=== PATIENT | female | born 1990 | race Caucasian/White ===

== ENCOUNTER 2019-06-21 19:44 | Emergency (ER) | payer SELFPAY ==
[2019-06-21] MEDS ORDERED: Ondansetron 4 MG/2 ML SDV IVPUSH ONE (19:58)
[2019-06-21] MEDS ORDERED: Sodium Chloride 0.9% 1,000 ML IV ONE ×2 (19:58→21:19)
--- NOTE | 2019-06-21 20:01 | EDM.PDOC ---
ED HPI GENERAL MEDICAL PROBLEM - General Chief Complaint: ANIMAL CONTROL SPECIALIST Problem Stated Complaint: NAUSEA Time Seen by Provider: 06/21/19 19:56 Source of Information: Reports: Patient History Limitations: Reports: No Limitations - History of Present Illness INITIAL COMMENTS - FREE TEXT/NARRATIVE: HISTORY AND PHYSICAL: History of present illness: Patient is a 28-year-old female who presents to the emergency room with complaints of nausea, vomiting and generalized weakness. Patient states she is 10 weeks' gestation and does follow with Kimberlyn Kenyon in our clinic for her ANIMAL CONTROL SPECIALIST needs. She has a confirmed IUP and a prescription for Zofran. She states she has not been taking the Zofran as she "doesn't like the way it makes me feel ". She states over the past 2 days she has had nausea and vomiting and is concerned she may be dehydrated. Patient denies any fever, chills, headache, change in vision, syncope or near syncope. Denies any chest pain, back pain, shortness of breath or cough. Denies any abdominal pain, diarrhea, constipation or dysuria. Has not noted any blood in urine or stool. Denies any vaginal bleeding or cramping. Patient has been eating and drinking appropriately. Review of systems: As per history of present illness and below otherwise all systems reviewed and negative. Past medical history: As per history of present illness and as reviewed below otherwise noncontributory. Surgical history: As per history of present illness and as reviewed below otherwise noncontributory. Social history: See social history for further information Family history: As per history of present illness and as reviewed below otherwise noncontributory. Physical exam: General: Well-developed and well-nourished 28-year-old -[place] female. Alert and oriented. Nontoxic appearing and in no acute distress. HEENT: Atraumatic, normocephalic, pupils equal and reactive bilaterally, negative for conjunctival pallor or scleral icterus, mucous membranes moist, TMs normal bilaterally, throat clear, neck supple, nontender, trachea midline. No drooling or trismus noted. No meningeal signs. No hot potato voice noted. Lungs: Clear to auscultation, breath sounds equal bilaterally, chest nontender. Heart: S1S2, regular rate and rhythm without overt murmur Abdomen: Soft, nondistended, nontender. Negative for masses or hepatosplenomegaly. Negative for costovertebral tenderness. Pelvis: Stable nontender. Skin: Intact, warm, dry. No lesions or rashes noted. Extremities: Atraumatic, moves all extremities per self without difficulty or deficits, negative for cords or calf pain. Neurovascular unremarkable. Neuro: Awake, alert, oriented. Cranial nerves II through XII unremarkable. Cerebellum unremarkable. Motor and sensory unremarkable throughout. Exam nonfocal. Notes: Patient refuses the Zofran. We'll give her Phenergan suppository. EKG shows a sinus rhythm with a rate of 86. She is refusing the influenza swab regardless of education. Patient does have bacteria in urine, we'll treat for UTI. She does not have any flank pain nor abdominal pain, not suspicious for a stone at this time. Patient does feel improvement with the medication. Supportive care measures were reviewed and discussed. Voices understanding and is agreeable to plan of care. Denies any further questions or concerns at this time. Diagnostics: CBC, CMP, UA, Influenza, EKG Therapeutics: IV fluids, Zofran (declined), Phenergan Suppos, Prescription: None Impression: Hyperemesis gravidarum UTI Plan: 1. Please start and/or continue to take your vitamin with folic acid once daily. 2. Take your Zofran or Phenergan Suppository as directed 3. Tylenol as needed for pain management. 4. Follow up with her ANIMAL CONTROL SPECIALIST in the next week. Return to the ED as needed and as discussed. Definitive disposition and diagnosis as appropriate pending reevaluation and review of above. chest Pain Score (Numeric/FACES): 2 - Related Data Allergies Allergy/AdvReac Type Severity Reaction Status Date / Time No Known Allergies Allergy Verified 12/09/15 04:09 Home Meds: Home Meds Ondansetron [Zofran ODT] 4 mg PO ASDIRECTED 06/21/19 [History] Past Medical History - Past Health History Medical/Surgical History: Denies Medical/Surgical History ANIMAL CONTROL SPECIALIST History: Reports: - Infectious Disease History Infectious Disease History: Reports: Chicken Pox Social & Family History - Family History Family Medical History: Noncontributory - Tobacco Use Smoking Status *Q: Never Smoker - Recreational Drug Use Recreational Drug Use: No ED ROS GENERAL - Review of Systems Review Of Systems: Comprehensive ROS is negative, except as noted in HPI. ED EXAM - Physical Exam Exam: See Below (See dictation) Course - Vital Signs Last Recorded V/S: Last Vital Signs Temp 97.3 F 06/21/19 19:50 Pulse 120 H 06/21/19 19:50 Resp 18 06/21/19 19:50 BP 143/90 H 06/21/19 19:50 Pulse Ox 99 06/21/19 19:50 - Orders/Labs/Meds Orders: Active Orders 24 hr Category Date Time Status EKG Documentation Completion [RC] STAT Care 06/21/19 20:01 Active Sodium Chloride 0.9% [Normal Saline] 1,000 ml Med 06/21/19 21:19 Ordered IV .Bolus cefTRIAXone [Rocephin in Dextrose,Iso-Osm 1 GM/50 ML] 1 Med 06/21/19 21:28 Ordered gm Premix Bag 1 bag IV ONETIME Medication Orders Sodium Chloride (Normal Saline) 1,000 mls @ 999 mls/hr IV .Bolus ONE Stop: 06/21/19 22:19 Last Admin: 06/21/19 21:23 Dose: 999 mls/hr Ceftriaxone Sodium/Dextrose 1 (gm/ Premix) 50 mls @ 100 mls/hr IV ONETIME ONE Stop: 06/21/19 21:57 Last Admin: 06/21/19 21:40 Dose: 100 mls/hr Labs: Laboratory Tests 06/21/19 06/21/19 06/21/19 Range/Units 19:50 19:50 19:50 WBC 11.49 H (4.0-11.0) K/uL RBC 4.75 (4.30-5.90) M/uL Hgb 14.2 (12.0-16.0) g/dL Hct 39.6 (36.0-46.0) % MCV 83.4 (80.0-98.0) fL MCH 29.9 (27.0-32.0) pg MCHC 35.9 (31.0-37.0) g/dL RDW Std Deviation 37.9 (28.0-62.0) fl RDW Coeff of Gerri 12 (11.0-15.0) % Plt Count 253 (150-400) K/uL MPV 10.90 (7.40-12.00) fL Neut % (Auto) 62.0 (48.0-80.0) % Lymph % (Auto) 30.6 (16.0-40.0) % [place] % (Auto) 6.7 (0.0-15.0) % Eos % (Auto) 0.4 (0.0-7.0) % Baso % (Auto) 0.3 (0.0-1.5) % Neut # (Auto) 7.1 H (1.4-5.7) K/uL Lymph # (Auto) 3.5 H (0.6-2.4) K/uL [place] # (Auto) 0.8 (0.0-0.8) K/uL Eos # (Auto) 0.1 (0.0-0.7) K/uL Baso # (Auto) 0.0 (0.0-0.1) K/uL Nucleated RBC % 0.0 /100WBC Nucleated RBCs # 0 K/uL Sodium 135 L (136-145) mmol/L Potassium 3.3 L (3.5-5.1) mmol/L Chloride 97 L (98-107) mmol/L Carbon Dioxide 24.1 (21.0-32.0) mmol/L BUN 5 L (7.0-18.0) mg/dL Creatinine 0.9 (0.6-1.0) mg/dL Est Cr Clr Drug Dosing 78.93 mL/min Estimated GFR (MDRD) > 60.0 ml/min Glucose 113 H (74-106) mg/dL Calcium 9.7 (8.5-10.1) mg/dL Total Bilirubin 0.6 (0.2-1.0) mg/dL AST 27 (15-37) IU/L ALT 21 (14-63) IU/L Alkaline Phosphatase 84 (46-116) U/L Total Protein 9.4 H (6.4-8.2) g/dL Albumin 4.7 (3.4-5.0) g/dL Globulin 4.7 H (2.6-4.0) g/dL Albumin/Globulin Ratio 1.0 (0.9-1.6) Urine Color Urine Appearance Urine pH (5.0-8.0) Ur Specific Aurora (1.001-1.035) Urine Protein (NEGATIVE) mg/dL Urine Glucose (UA) (NEGATIVE) mg/dL Urine Ketones (NEGATIVE) mg/dL Urine Occult Blood (NEGATIVE) Urine Nitrite (NEGATIVE) Urine Bilirubin (NEGATIVE) Urine Ictotest Urine Urobilinogen (<2.0) EU/dL Ur Leukocyte Esterase (NEGATIVE) Urine RBC (0-2/HPF) Urine WBC (0-5/HPF) Ur Epithelial Cells (NONE-FEW) Urine Bacteria (NEGATIVE) Urine Mucus (NONE-MOD) Monoscreen NEGATIVE (NEG) 06/21/19 Range/Units 20:50 WBC (4.0-11.0) K/uL RBC (4.30-5.90) M/uL Hgb (12.0-16.0) g/dL Hct (36.0-46.0) % MCV (80.0-98.0) fL MCH (27.0-32.0) pg MCHC (31.0-37.0) g/dL RDW Std Deviation (28.0-62.0) fl RDW Coeff of Gerri (11.0-15.0) % Plt Count (150-400) K/uL MPV (7.40-12.00) fL Neut % (Auto) (48.0-80.0) % Lymph % (Auto) (16.0-40.0) % [place] % (Auto) (0.0-15.0) % Eos % (Auto) (0.0-7.0) % Baso % (Auto) (0.0-1.5) % Neut # (Auto) (1.4-5.7) K/uL Lymph # (Auto) (0.6-2.4) K/uL [place] # (Auto) (0.0-0.8) K/uL Eos # (Auto) (0.0-0.7) K/uL Baso # (Auto) (0.0-0.1) K/uL Nucleated RBC % /100WBC Nucleated RBCs # K/uL Sodium (136-145) mmol/L Potassium (3.5-5.1) mmol/L Chloride (98-107) mmol/L Carbon Dioxide (21.0-32.0) mmol/L BUN (7.0-18.0) mg/dL Creatinine (0.6-1.0) mg/dL Est Cr Clr Drug Dosing mL/min Estimated GFR (MDRD) ml/min Glucose (74-106) mg/dL Calcium (8.5-10.1) mg/dL Total Bilirubin (0.2-1.0) mg/dL AST (15-37) IU/L ALT (14-63) IU/L Alkaline Phosphatase (46-116) U/L Total Protein (6.4-8.2) g/dL Albumin (3.4-5.0) g/dL Globulin (2.6-4.0) g/dL Albumin/Globulin Ratio (0.9-1.6) Urine Color YELLOW Urine Appearance HAZY Urine pH 6.0 (5.0-8.0) Ur Specific Aurora >= 1.030 (1.001-1.035) Urine Protein 30 H (NEGATIVE) mg/dL Urine Glucose (UA) NEGATIVE (NEGATIVE) mg/dL Urine Ketones >=80 (NEGATIVE) mg/dL Urine Occult Blood MODERATE H (NEGATIVE) Urine Nitrite NEGATIVE (NEGATIVE) Urine Bilirubin SMALL H (NEGATIVE) Urine Ictotest POSITIVE Urine Urobilinogen 4.0 H (<2.0) EU/dL Ur Leukocyte Esterase NEGATIVE (NEGATIVE) Urine RBC 15-20 (0-2/HPF) Urine WBC 0-3 (0-5/HPF) Ur Epithelial Cells FEW (NONE-FEW) Urine Bacteria 1+ H (NEGATIVE) Urine Mucus MODERATE (NONE-MOD) Monoscreen (NEG) Meds: Medications Generic Name Dose Route Start Last Admin Trade Name Freq PRN Reason Stop Dose Admin Sodium Chloride 1,000 mls @ 999 mls/hr 06/21/19 21:19 06/21/19 21:23 Normal Saline IV 06/21/19 22:19 999 mls/hr .Bolus ONE Administration Ceftriaxone Sodium/Dextrose 1 50 mls @ 100 mls/hr 06/21/19 21:28 06/21/19 21: 40 gm/ Premix IV 06/21/19 21:57 100 mls/hr ONETIME ONE Administration Discontinued Medications Generic Name Dose Route Start Last Admin Trade Name Freq PRN Reason Stop Dose Admin Sodium Chloride 1,000 mls @ 999 mls/hr 06/21/19 19:58 06/21/19 20:06 Normal Saline IV 06/21/19 20:58 999 mls/hr STAT ONE Administration Ondansetron HCl 4 mg 06/21/19 19:58 11/29/19 20:09 Zofran IVPUSH 06/21/19 19:59 Not Given ONETIME ONE Promethazine HCl 12.5 mg 06/21/19 20:16 06/21/19 20:58 Phenadoz RECTAL 06/21/19 20:17 12.5 mg ONETIME ONE Administration Departure - Departure Time of Disposition: 21:43 Disposition: Home, Self-Care 01 Clinical Impression: Hyperemesis gravidarum Urinary tract infection Qualifiers: Urinary tract infection type: acute cystitis Hematuria presence: with hematuria Qualified Code(s): N30.01 - Acute cystitis with hematuria - Discharge Information Instructions: Urinary Tract Infection, Adult, [id number] Referrals: PCP,Unknown [Primary Care Provider] - Forms: ED Department Discharge Additional Instructions: The following information is given to patients seen in the emergency department who are being discharged to home. This information is to outline your options for follow-up care. We provide all patients seen in our emergency department with a follow-up referral. The need for follow-up, as well as the timing and circumstances, are variable depending upon the specifics of your emergency department visit. If you don't have a primary care physician on staff, we will provide you with a referral. We always advise you to contact your personal physician following an emergency department visit to inform them of the circumstance of the visit and for follow-up with them and/or the need for any referrals to a consulting specialist. The emergency department will also refer you to a specialist when appropriate. This referral assures that you have the opportunity for follow-up care with a specialist. All of these measure are taken in an effort to provide you with optimal care, which includes your follow-up. Under all circumstances we always encourage you to contact your private physician who remains a resource for coordinating your care. When calling for follow-up care, please make the office aware that this follow-up is from your recent emergency room visit. If for any reason you are refused follow-up, please contact the [facility] Emergency Department at and asked to speak to the emergency department charge nurse. [facility] [address] [place] [id number] [facility] [address] [place] [address] 1. Please start and/or continue to take your vitamin with folic acid once daily. 2. Pelvic rest until cleared by your OBGYN (no tampons, sex, etc...) 3. Tylenol as needed for pain management. 4. Follow up with her ANIMAL CONTROL SPECIALIST in the next 1-2 days. Return to the ED as needed and as discussed. - My Orders Last 24 Hours: My Active Orders 06/21/19 20:01 EKG Documentation Completion [RC] STAT 06/21/19 21:19 Sodium Chloride 0.9% [Normal Saline] 1,000 ml IV .Bolus 06/21/19 21:28 cefTRIAXone [Rocephin in Dextrose,Iso-Osm 1 GM/50 ML] 1 gm Premix Bag 1 bag IV ONETIME - Assessment/Plan Last 24 Hours: My Active Orders 06/21/19 20:01 EKG Documentation Completion [RC] STAT 06/21/19 21:19 Sodium Chloride 0.9% [Normal Saline] 1,000 ml IV .Bolus 06/21/19 21:28 cefTRIAXone [Rocephin in Dextrose,Iso-Osm 1 GM/50 ML] 1 gm Premix Bag 1 bag IV ONETIME
[2019-06-21] MEDS ORDERED: Promethazine 12.5 MG Supp RECTAL ONE (20:16)
[2019-06-21 20:21] LABS: BLOOD UREA NITROGEN,BUN 5 mg/dL (7.0-18.0); CARBON DIOXIDE,CO2 24.1 mmol/L (21.0-32.0); CHLORIDE,CL 97 mmol/L (98-107); GLUCOSE RANDOM 113 mg/dL (74-106); POTASSIUM,K 3.3 mmol/L (3.5-5.1); SODIUM,NA 135 mmol/L (136-145)
[2019-06-21] MEDS ORDERED: cefTRIAXone 1 GM in Premix Bag 1 BAG IV ONE (21:28)
[2019-06-22 01:51] VITALS: BP 119/78; PULSE 97
== END 2019-06-21 22:21 | disposition home or self-care (01) ==
LOC: MW.ED 19:44
DX: O21.0 Mild hyperemesis gravidarum (principal); O23.11 Infections of bladder in pregnancy, first trimester; Z3A.10 10 weeks gestation of pregnancy
CPT/HCPCS: 36415; 80053; 81001; 85025; 86308; 93005; 96361; 96365; 99285; A9270; J0696; J7040; 99283

== ENCOUNTER 2020-01-18 00:49 | Inpatient (IN) | payer SELFPAY ==
[2020-01-18] MEDS ORDERED: Sodium Chloride 0.9% 10 ML SDV IV PRN (01:13)
[2020-01-18] MEDS ORDERED: Misoprostol 25 MCG (1/4 of 100 MCG) Tab PO PRN (01:13)
[2020-01-18] MEDS ORDERED: Methylergonovine 0.2 MG/1 ML Amp IM PRN (01:13)
[2020-01-18] MEDS ORDERED: Carboprost Tromethamine 250 MCG/1 ML Amp IM PRN (01:13)
[2020-01-18] MEDS ORDERED: Water For Irrigation,Sterile 1,000 ML Container IRR PRN (01:13)
[2020-01-18] MEDS ORDERED: Terbutaline 1 MG/ML SDV SUBCUT PRN (01:13)
[2020-01-18] MEDS ORDERED: Sodium Chloride 0.9% 10 ML Syringe FLUSH PRN (01:13)
[2020-01-18] MEDS ORDERED: Tranexamic Acid 1,000 MG in Sodium Chloride 0.9% 100 ML IV PRN (01:13)
[2020-01-18] MEDS ORDERED: Misoprostol 25 MCG (1/4 of 100 MCG) Tab VAG PRN (01:13)
[2020-01-18] MEDS ORDERED: Misoprostol 200 MCG Tab PO PRN (01:13)
[2020-01-18] MEDS ORDERED: Sodium Chloride 0.9% 2.5 ML Syringe FLUSH PRN (01:13)
[2020-01-18] MEDS ORDERED: Nalbuphine 10 MG/1 ML Vial IVPUSH PRN (01:13)
[2020-01-18] MEDS ORDERED: Lidocaine 1% 50 ML MDV INJECT PRN (01:13)
[2020-01-18] MEDS ORDERED: Oxytocin/0.9 % Sodium Chloride 30 UNIT/500 ML BAG IV SCH ×2 (01:15)
[2020-01-18] MEDS ORDERED: Lactated Ringers 1,000 ML IV SCH (01:15)
[2020-01-18] MEDS ORDERED: Acetaminophen 500 MG Tab PO PRN ×2 (06:08)
[2020-01-18] MEDS ORDERED: Ibuprofen 400 MG Tab PO PRN (06:08)
[2020-01-18] MEDS ORDERED: Lanolin 100% Cream 7 GM Tube TOP PRN (06:08)
[2020-01-18] MEDS ORDERED: oxyCODONE 5 MG Tab PO PRN (06:08)
[2020-01-18] MEDS ORDERED: Witch Hazel Medicated Pads 40/Jar TOP PRN (06:08)
[2020-01-18] MEDS ORDERED: Ibuprofen 800 MG Tab PO PRN (06:08)
[2020-01-18] MEDS ORDERED: Docusate Sodium 100 MG Cap PO PRN (06:08)
[2020-01-18] MEDS ORDERED: Bisacodyl 10 MG Supp RECTAL PRN (06:08)
[2020-01-18] MEDS ORDERED: Benzocaine/Menthol 20%-0.5% Spray 78 GM Cannister TOP PRN (06:08)
--- NOTE | 2020-01-18 06:14 | PCM.OPNOTE ---
- General Post-Op/Procedure Note Date of Surgery/Procedure: 01/18/20 Operative Procedure(s): /IP Findings: Viable male APGARs 8, 9 weight 3410 gm. Spontaneous delivery intact placenta with 3V cord Pre Op Diagnosis: 40/5 week IUP. IOL for past due Post-Op Diagnosis: Same Primary Surgeon: Ana Matos EBL in mLs: 250 Complications: none known Condition: Good Free Text/Narrative:: Dictation [id number]
--- NOTE | 2020-01-18 08:19 | OR ---
SURGEON: Ana Matos M.D. DATE OF PROCEDURE: 01/18/2020 PREOPERATIVE DIAGNOSES: 1. A 40-5/7 weeks' intrauterine . 2. Induction of labor for past due . POSTOPERATIVE DIAGNOSES: 1. A 40-5/7 weeks' intrauterine . 2. Induction of labor for past due . PROCEDURE: Spontaneous vaginal delivery, intact perineum. PRIMARY SURGEON: Ana Matos M.D. ANESTHESIA: None. ESTIMATED BLOOD LOSS: 250 mL. COMPLICATIONS: None known. FINDINGS: Viable male. scores 8 at one minute and 9 at five minutes. Weight of 3410 g. Spontaneous delivery, intact placenta, 3-vessel cord. DISPOSITION: to nursery. Mom in LDRP, stable. 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 Upon admission, she was found to be 1 to 2 cm, 80% effaced, -3 station. heart tones were category 1. She was admitted, routine labs were drawn, and IV hydration was initiated. The patient underwent Cytotec ripening and responded to this very well and began progressing quite rapidly. Shortly after 5:00 a.m., she was found to be 5 to 6, then progressed to 8 cm. I was called for delivery, and within about 5 minutes the patient progressed to complete and delivered precipitously with nurse attending upon mu arrival shortly thereafter. The was vigorous and crying. The cord had been clamped and cut. Light pressure was applied while the placenta was delivered spontaneously intact. Vigorous fundal massage was applied, while 30 units of Pitocin delivered in 500 mL IV fluid. Upon inspection of cervix, vaginal sidewall, and perineum were found to be intact. Uterus remained firm. Hemostasis appeared evident. Sponge and instrument counts were correct. The patient remained in LDRP, infant to nursery. PAUL / MEAGAN /[id number]
[2020-01-19 09:18] VITALS: BP 116/63; PULSE 63
--- NOTE | 2020-01-19 11:01 | PCM.PNPP ---
- General Info Date of Service: 01/19/20 Functional Status: Reports: Pain Controlled, Tolerating Diet, Ambulating, Urinating - Review of Systems General: Reports: Fatigue. Denies: Fever, Weakness Pulmonary: Denies: Shortness of Breath Cardiovascular: Denies: Chest Pain, Palpitations, Lightheadedness Gastrointestinal: Reports: No Symptoms Genitourinary: Reports: No Symptoms Musculoskeletal: Reports: No Symptoms Skin: Reports: No Symptoms Neurological: Reports: No Symptoms Psychiatric: Reports: No Symptoms - General Info Date of Service: 01/19/20 - Patient Data Vital Signs - Most Recent: Last Vital Signs Temp 36.4 C 01/19/20 07:09 Pulse 63 01/19/20 08:25 Resp 16 01/19/20 08:25 BP 116/63 01/19/20 08:25 Pulse Ox 99 01/19/20 08:25 Weight - Most Recent: 72.484 kg Lab Results - Last 24 Hours: Laboratory Results - last 24 hr 01/18/20 Range/Units 15:07 Hgb 9.1 L (12.0-16.0) g/dL Hct 28.6 L (36.0-46.0) % Med Orders - Current: Current Medications Acetaminophen (Tylenol Extra Strength) 500 mg PO Q4H PRN PRN Reason: Pain Acetaminophen (Tylenol Extra Strength) 1,000 mg PO Q4H PRN PRN Reason: Pain Benzocaine/Menthol (Dermoplast Pain Relief 20%-0.5% [place]) 78 gm TOP ASDIRECTED PRN PRN Reason: Perineal Comfort Measure Last Admin: 01/18/20 07:32 Dose: 1 canister Documented by: Bisacodyl (Dulcolax) 10 mg RECTAL ONETIME PRN PRN Reason: Constipation Carboprost Tromethamine (Hemabate Ds) 250 mcg IM ASDIRECTED PRN PRN Reason: Post Hemorrhage Docusate Sodium (Colace) 100 mg PO BID PRN PRN Reason: Constipation Emollient Ointment (Lansinoh Hpa) 0 gm TOP ASDIRECTED PRN PRN Reason: Sore Nipples Tranexamic Acid 1,000 mg/ (Sodium Chloride) 110 mls @ 660 mls/hr IV ONETIME PRN PRN Reason: Bleeding Oxytocin/Sodium Chloride (Oxytocin 30 Unit/500 Ml-Ns) 30 unit in 500 mls @ 2 mls/hr IV TITRATE GEOVANNY; Protocol Lactated Ringer's (Ringers, Lactated) 1,000 mls @ 150 mls/hr IV ASDIRECTED GEOVANNY Ibuprofen (Motrin) 400 mg PO Q4H PRN PRN Reason: Pain Ibuprofen (Motrin) 800 mg PO Q6H PRN PRN Reason: Pain Methylergonovine Maleate (Methergine) 0.2 mg IM ASDIRECTED PRN PRN Reason: Post Hemorrhage Last Admin: 01/18/20 14:04 Dose: 0.2 mg Documented by: Misoprostol (Cytotec) 200 mcg PO ONETIME PRN PRN Reason: Post Hemorrhage Nalbuphine HCl (Nubain) 10 mg IVPUSH Q1H PRN PRN Reason: Pain (severe 7-10) Oxycodone HCl (Oxycodone) 5 mg PO Q2H PRN PRN Reason: Pain Sodium Chloride (Saline Flush) 10 ml FLUSH ASDIRECTED PRN PRN Reason: Keep Vein Open Sodium Chloride (Saline Flush) 2.5 ml FLUSH ASDIRECTED PRN PRN Reason: Keep Vein Open Sterile Water (Sterile Water For Irrigation) 1,000 ml IRR ASDIRECTED PRN PRN Reason: delivery Witch Shanthi (Tucks) 1 pad TOP ASDIRECTED PRN PRN Reason: comfort care Last Admin: 01/18/20 07:32 Dose: 1 tub Documented by: Discontinued Medications Oxytocin/Sodium Chloride (Oxytocin 30 Unit/500 Ml-Ns) 30 unit in 500 mls @ 999 mls/hr IV TITRATE GEOVANNY Last Admin: 01/18/20 05:46 Dose: 999 mls/hr Documented by: Lidocaine HCl (Xylocaine 1%) 50 ml INJECT ONETIME PRN PRN Reason: Laceration repair Misoprostol (Cytotec) 25 mcg VAG Q4H PRN PRN Reason: Cervical Ripening Last Admin: 01/18/20 01:59 Dose: 25 mcg Documented by: Misoprostol (Cytotec) 25 mcg PO Q4H PRN PRN Reason: Cervical Ripening Last Admin: 01/18/20 01:59 Dose: 25 mcg Documented by: Sodium Chloride (Normal Saline) 10 ml IV ASDIRECTED PRN PRN Reason: IV Use Terbutaline Sulfate (Brethine) 0.25 mg SUBCUT ASDIRECTED PRN PRN Reason: Tacysystole - Infant Interaction Support Person: Significant Other - Recovery Exam Fundal Tone: Firm Fundal Level: 1 Fingerbreadths Below Umbilicus Fundal Placement: Midline Lochia Amount: Small Lochia Color: Rubra/Red Perineum Description: Intact, Minimal Bruising/Swelling Episiotomy/Laceration: None Bladder Status: Voiding Urinary Elimination: Not Voiding - Exam General: Alert, Oriented Lungs: Normal Respiratory Effort Cardiovascular: Regular Rate, Regular Rhythm GI/Abdominal Exam: Normal Bowel Sounds, Soft Extremities: Pedal Edema (trace). No: Jennifer's Sign Skin: Warm, Dry, Intact Neurological: No New Focal Deficit Psy/Mental Status: Alert, Normal Affect, Normal Mood - Problem List & Annotations (1) Vaginal delivery SNOMED Code(s): 000908518 Code(s): O80 - ENCOUNTER FOR FULL-TERM UNCOMPLICATED DELIVERY Status: Acute Current Visit: No - Problem List Review Problem List Initiated/Reviewed/Updated: Yes - My Orders Last 24 Hours: My Active Orders 01/19/20 10:58 Ready for Discharge [RC] PER UNIT ROUTINE - Assessment Assessment:: PPD 1 status post - Plan Plan:: Patient doing well overall. Discharge instructions reviewed. Follow up at clinic 6 weeks. Discharge to home today.
== END 2020-01-19 11:35 | disposition home or self-care (01) | DRG 807 ==
LOC: MW.OBCHECK 00:49 → MW.OB 00:50 → MW.OBCHECK 00:54 → MW.OB 05:44 → OBSVTOIN 05:44 → MW.OB 08:00
PROVIDERS: ADMIT Obstetrics & Gynecology; ATTEND Obstetrics & Gynecology
PROC: 10E0XZZ Delivery of Products of Conception, External Approach (ICD-10-PCS; principal; 2020-01-18)
PROC: 3E0P7VZ Introduction of Hormone into Female Reproductive, Via Natural or Artificial Opening (ICD-10-PCS; 2020-01-18)
DX: O48.0 Post-term pregnancy (principal); Z37.0 Single live birth; Z3A.40 40 weeks gestation of pregnancy; O62.3 Precipitate labor
CPT/HCPCS: 59025; 59409; 85014; 85018; 85027; 86592; 86850; 86900; 86901; A9270-GY; J2210; J2590

== ENCOUNTER 2023-12-23 16:04 | Observation (INO) | payer OTHER ==
[2023-12-23] MEDS: Sodium Chloride 0.9% 1,000 ML IV ONE (16:51)
[2023-12-23 16:53] LABS: BASOPHILS ABSOLUTE AUTO 0.05 K/uL (0.00-0.20); BASOPHILS PERCENT AUTO 0.5 % (0.0-1.0); EOSINOPHILS ABSOLUTE AUTO 0.06 K/uL (0.00-0.45); EOSINOPHILS PERCENT AUTO 0.6 % (0.0-6.0); HEMATOCRIT 37.9 % (37.0-47.0); HEMOGLOBIN 12.9 g/dL (12.0-16.0); IMMATURE GRAN ABSOLUTE AUTO 0.02 K/uL (0.00-0.05); IMMATURE GRAN PERCENT AUTO 0.2 % (0.0-0.4); LYMPHOCYTES ABSOLUTE AUTO 2.83 K/uL (1.00-4.80); LYMPHOCYTES PERCENT AUTO 28.5 % (24.0-44.0); MEAN CORPUSCULAR HEMOGLOBIN 28.9 pg (28.0-32.0); MEAN PLATELET VOLUME 10.4 fL (9.4-12.3); MONOCYTES ABSOLUTE AUTO 0.64 K/uL (0.00-0.80); MONOCYTES PERCENT AUTO 6.5 % (0.0-8.0); NEUTROPHILS ABSOLUTE AUTO 6.32 K/uL (1.80-7.70); NEUTROPHILS PERCENT AUTO 63.7 % (41.0-71.0); PLATELET COUNT,PLT 232 K/uL (150-400); RED BLOOD CELL COUNT 4.46 M/uL (4.10-5.30); WHITE BLOOD CELL COUNT,WBC 9.92 K/uL (3.9-11.3)
[2023-12-23] MEDS: Ondansetron 4 MG/2 ML SDV IVPUSH ONE (16:54)
[2023-12-23 17:38] LABS: ALBUMIN 3.9 g/dL (3.4-5.0); BILIRUBIN TOTAL 0.5 mg/dL (0.2-1.0); CALCIUM 8.9 mg/dL (8.5-10.1); CARBON DIOXIDE,CO2 25.8 mmol/L (21.0-32.0); CREATININE 0.9 mg/dL (0.6-1.0); EST CRCL DRUG DOSING (CG) 72.17 mL/min
[2023-12-23 17:56] LABS: COLOR,URINE YELLOW; GLUCOSE,URINE NEGATIVE (NEGATIVE); KETONES,URINE >=80 mg/dL (NEGATIVE); LEUKOCYTE ESTERASE,URINE NEGATIVE (NEGATIVE); NITRITE,URINE NEGATIVE (NEGATIVE); OCCULT BLOOD,URINE SMALL (NEGATIVE); PROTEIN,URINE TRACE mg/dL (NEGATIVE)
[2023-12-23 17:57] LABS: BILIRUBIN,URINE SMALL (NEGATIVE)
[2023-12-23] MEDS: Promethazine 25 MG/ML SDV IM ONE (18:06)
[2023-12-23 18:09] LABS: APPEARANCE,URINE HAZY; BACTERIA,URINE FEW (NEGATIVE); EPITHELIAL CELLS,URINE FEW (NONE-FEW); WBC,URINE 0-1 (0-5/HPF)
[2023-12-23] MEDS: Metoclopramide 10 MG/2 ML SDV IVPUSH SCH (20:52)
[2023-12-23] MEDS: NS + KCl 20mEq/L 1,000 ML IV SCH (20:52)
[2023-12-24 09:37] LABS: A/G RATIO 0.9 (0.9-1.6); ALBUMIN 3.2 g/dL (3.4-5.0); BILIRUBIN TOTAL 0.6 mg/dL (0.2-1.0); CALCIUM 8.2 mg/dL (8.5-10.1); CARBON DIOXIDE,CO2 23.5 mmol/L (21.0-32.0); CREATININE 0.8 mg/dL (0.6-1.0); EST CRCL DRUG DOSING (CG) 81.19 mL/min; MAGNESIUM 1.8 mg/dL (1.8-2.4); POTASSIUM,K 3.3 mmol/L (3.5-5.1); PROTEIN TOTAL,TP 6.8 g/dL (6.4-8.2)
[2023-12-24] MEDS: Potassium Chloride 100 ML IV SCH (13:01)
[2023-12-24] MEDS: Sodium Chloride 0.9% 250 ML IV ONE (13:02)
[2023-12-24 15:54] LABS: ALBUMIN 3.1 g/dL (3.4-5.0); BILIRUBIN TOTAL 0.4 mg/dL (0.2-1.0); CALCIUM 8.2 mg/dL (8.5-10.1); CARBON DIOXIDE,CO2 21.8 mmol/L (21.0-32.0); CREATININE 0.7 mg/dL (0.6-1.0); EST CRCL DRUG DOSING (CG) 92.79 mL/min; POTASSIUM,K 4.5 mmol/L (3.5-5.1); PROTEIN TOTAL,TP 6.3 g/dL (6.4-8.2)
[2023-12-24 18:46] VITALS: BP 126/77; PULSE 77
== END 2023-12-24 18:15 | disposition home or self-care (01) ==
LOC: MW.ED 16:04 → MW.MS 19:19
PROVIDERS: ADMIT Obstetrics & Gynecology; ATTEND Obstetrics & Gynecology
DX: O21.1 Hyperemesis gravidarum with metabolic disturbance (principal); O09.521 Supervision of elderly multigravida, first trimester; O20.8 Other hemorrhage in early pregnancy; R53.83 Other fatigue; E86.0 Dehydration; Z79.899 Other long term (current) drug therapy; Z3A.01 Less than 8 weeks gestation of pregnancy
CPT/HCPCS: 36415; 76830; 80053; 81001; 83735; 84702; 85025; 96361; 96365; 96366; 96372; 96375; 96376; 99285; G0378; J2405; J2550; J2765; J3480; J7030; J7050; 96374; 99284